=== PATIENT | male | born 2000 | race Two or more races ===

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

== ENCOUNTER 2019-06-26 01:32 | Emergency (ER) | payer SELFPAY ==
[2019-06-26] VITALS (8 sets, daily range): BP systolic 90–139; BP diastolic 51–92; PULSE 72–125; RESP 14–20; TEMP 36.8; O2SAT 95–100; BMI 31.4
[2019-06-26] MEDS: Ziprasidone IM 20 MG/ML VIAL 10 MG IM (02:02)
[2019-06-26 02:14] LABS: Absolute Lymphocyte Count 6.49 X10^3/uL (0.83-4.51); Absolute Neutrophil Count 6.6 X10^3/uL (2.0-7.7); Basophil# 0.08 X10^3/uL; Basophil% 0.5 % (0-1); Eosinophil# 0.29 X10^3/uL; Hematocrit 47.1 % (40-54); Hemoglobin 15.4 g/dL (13.0-16.5); Lymphocyte # 6.49 X10^3/ul (4.0); Lymphocyte % 44.1 % (19-41); Mean Corp Hgb Conc 32.7 g/dL (32-36); Mean Corpuscular Hgb 29.3 pg (27.0-32.0); Mean Corpuscular Volume 89.5 fL (80-94); Mean Platelet Vol. 10.6 fl (6.2-12.0); Monocyte# 1.19 X10^3/uL; Monocyte% 8.1 % (0-10); NRBC Flagged by Analyzer 0 % (0-5); Neutrophil # 6.59 X10^3/uL (2.7-7.7); Neutrophil % 44.9 % (47-70); POSITIVE DIFFERENTIAL YES; Platelet Count 257 K/mm3 (150-450); RBC Distribution Width CV 12.7 % (11.6-14.6); RBC Distribution Width SD 41.4 fl (35.1-43.9); Red Blood Count 5.26 M/mm3 (4.6-6.2); White Blood Count 14.7 K/mm3 (4.4-11.0)
[2019-06-26 02:15] LABS: Differential Indicated SCAN CRITERIA MET
[2019-06-26] MEDS: Ondansetron 4 MG/2 ML Vial IV (02:15)
[2019-06-26 02:30] LABS: AST(SGOT) 52 U/L (15-37); Alanine Aminotransfer ALT/SGPT 143 U/L (16-61); Albumin, Serum 4.3 g/dL (3.2-5.0); Alkaline Phosphatase 89 U/L (45-117); Anion Gap 9 (5-15); BUN 10 mg/dL (7-18); BUN/Creat Ratio 10.9 RATIO (10-20); Calcium,Total 8.7 mg/dL (8.5-10.1); Chloride 110 mmol/L (98-107); Creatinine, Serum 0.91 mg/dL (0.70-1.30); EST Glomerular Filtration Rate 112 mL/min (>60); Est Glom Filt Rate - Afr Amer 135 mL/min (>60); Estimated Creatinine Clearance 112.64 ml/min; Globulin 4.1 g/dL (2.2-4.2); Glucose 94 mg/dL (74-106); Protein, Total 8.4 g/dL (6.4-8.2); Sodium Level 143 mmol/L (136-145)
[2019-06-26 02:40] LABS: Differential Comment SCANNED
--- NOTE | 2019-06-26 02:42 | ED.RN ---
UPON ARRIVAL TO ED PT WAS COMBATIVE, NOT FOLLOWING COMMANDS, AND SWINGING AT STAFF. PT HAD TO BE HELD DOWN TO SAFELY MOVE HIM FROM BED TO COT. PT WAS YELLING AND NONCOOPERATIVE. RESTRAINTS APPLIED DUE TO THIS SITUATION.
--- NOTE | 2019-06-26 03:07 | ED.VIS.GEN ---
History of Present Illness Chief Complaint: ETOH Intox Informant: Customer Service Correspondence Clerk Onset: Today Narrative: Reportedly the patient is a [employer] student who is brought in by EMS for alcohol intoxication. They were called to the scene of a [place] party the patient was unable to get up and was incoherent. [employer] tells me this is not the first time that he has been intoxicated. Patient himself cannot provide me any meaningful information. Past Medical History - Allergies and Home Meds Allergies/Adverse Reactions: Allergies No Known Allergies Allergy (Verified 06/26/19 01:39) Primary Care Physician: Care Physician,No Primary [Primary Care Provider] - Smoking Status: Unknown if ever smoked Review of Systems ROS: Unable to Obtain Physical Exam Vital Signs/Narrative: Vital Signs Temp Pulse Resp BP Pulse Ox 06/26/19 02:38 121 H 16 119/74 96 06/26/19 01:34 98.2 F 125 H 20 H 139/92 H 96 Inital Vital Signs reviewed: Yes General: Well nourished, Well developed, No Acute Distress Head: Normocephalic, Atraumatic Eyes: Perrl, EOMI ENT: Moist mucous membranes, No rhinorrhea Neck: Supple, Nontender Cardiovascular: Regular rate, Regular rhythm, No murmurs Respiratory: No distress, CTA bilaterally, Chest nontender Abdomen: Soft, Nontender, Nondistended, Normal bowel sounds Back: Nontender, Normal Inspection Extremities: Nontender, No edema Skin: Normal color, No rash Neurological: Cranial nerves II-XII grossly intact, Normal Strength, Normal Sensation, Stupor - Patient responds to voice but is incoherent. He is not redirectable and is combative Diagnostic/Tx/Re-eval - Medical Decision Making The patient required leather restraints and eventually chemical sedation. More than one occasion he grabbed at the nurses screaming and squeezing their hands as they tried to help him. He eventually he was chemically sedated and has been resting. Alcohol level is substantially elevated. He will be allowed to sober up. ED Disposition - Plan for ED Patient: Disposition: Home or Assisted Living Diagnosis: Alcohol intoxication Instructions: Alcohol Intoxication Referrals: [facility] [GROUP OF PHYSICIANS] - Additional Instructions: You clearly have a problem with alcohol. You need to reconsider your current life path. I would strongly urge you to abstain from alcohol and consider speaking with a counselor. Your behavior tonight towards the staff who was trying to help you is unacceptable. You grabbed at nurses and squeeze them until they screamed in pain. You yelled at staff that were trying to help you. You required physical and chemical restraints. Your behavior is not going to be tolerated and you should consider yourself keo that you are not being charged with assault on a nurse.
--- NOTE | 2019-06-26 09:33 | ED.RN ---
marifer advised of pts aggressive behavior. pt has had 3 visits and all 3 times were violent towards staff. ER advised [facility] at [facility] for safety issues.
== END 2019-06-26 09:34 | disposition home or self-care (01) ==
PROVIDERS: Emergency Provider Emergency Medicine
DX: F10.129 Alcohol abuse with intoxication, unspecified (principal); Z78.1 Physical restraint status
CPT/HCPCS: 80053; 80320; 85025; 96372; 96374; 99285; A4216; G0480; J2405; J3486